=== PATIENT | female | born 1990 | race Hispanic/Latino ===

== ENCOUNTER 2017-07-12 02:15 | Inpatient (IN) | payer OTHER ==
[2017-07-12] MEDS ORDERED: AMPICILLIN 2 GM VIAL As Ordered (02:47)
[2017-07-12] MEDS: LACTATED RINGER'S 1000 ML IV (02:55)
[2017-07-12] MEDS: LR 1,000 ML IV ×3 (02:55→18:34)
[2017-07-12] MEDS ORDERED: AMPICILLIN SOD 2 GM in APPROPRIATE DILUENT 20 ML IV (02:55)
[2017-07-12 03:07] LABS: HEMATOCRIT 37.8 % (36.0-47.0); HEMOGLOBIN 13.1 g/dl (12.0-15.5); MEAN CORPUSCULAR HEMOGLOBIN 31.3 pg (27.0-33.0); MEAN CORPUSCULAR HGB CONC 34.7 g/dl (32.0-36.5); MEAN CORPUSCULAR VOLUME 90.2 fl (80.0-96.0); PLATELET COUNT, AUTOMATED 273 10^3/uL (150-450); RED BLOOD COUNT 4.19 10^6/uL (4.00-5.40); RED CELL DISTRIBUTION WIDTH 14.5 % (11.5-14.5); WHITE BLOOD COUNT 17.9 10^3/uL (4.0-10.0)
[2017-07-12] MEDS ORDERED: OXYTOCIN 30 UNITS IN 0.9% NaCl 500ML IV BAG (J2590) As Ordered (03:20)
[2017-07-12] MEDS ORDERED: DOCUSATE SODIUM 100 MG CAP PO (05:00)
[2017-07-12] MEDS: OXYTOCIN DRIP 30 UNITS in APPROPRIATE DILUENT 1 EA IV (05:00)
[2017-07-12] MEDS: LIDOCAINE 1% MDV 20ML VIAL INFIL (05:00)
[2017-07-12] MEDS ORDERED: AMPICILLIN SOD 1 GM in APPROPRIATE DILUENT 10 ML IV (07:00)
[2017-07-12] MEDS: IBUPROFEN 800 MG TAB PO ×2 (07:08→15:37)
[2017-07-12] MEDS: RHOGAM 300 MCG (1500 IU) INJ (J2790) IM (07:21)
[2017-07-12] MEDS: MEASLES,MUMPS,RUBELLA VACCINE INJ (MMR-II) (90707) SC (07:25)
[2017-07-12] MEDS: PRENATAL VITAMINS CHEWABLE TABLET PO (08:06)
[2017-07-12] MEDS: DIBUCAINE 1% OINTMENT 30GM TOP ×2 (08:06→23:01)
[2017-07-12] MEDS: ACETAMINOPHEN 500 MG TAB PO (22:53)
[2017-07-13] MEDS: LR 1,000 ML IV (02:55)
[2017-07-13] MEDS: PRENATAL VITAMINS CHEWABLE TABLET PO (07:43)
[2017-07-13] MEDS: IBUPROFEN 800 MG TAB PO ×2 (07:43→18:24)
[2017-07-14] MEDS: PRENATAL VITAMINS CHEWABLE TABLET PO (08:40)
[2017-07-14] MEDS: IBUPROFEN 800 MG TAB PO (08:41)
== END 2017-07-14 14:15 | disposition home or self-care (01) | DRG 775 ==
LOC: M LDO 02:15 → M LDI 02:54 → M OBS 06:50
PROVIDERS: Obstetrics & Gynecology
PROC: 10E0XZZ Delivery of Products of Conception, External Approach (ICD-10-PCS; principal; 2017-07-12)
PROC: 0KQM0ZZ Repair Perineum Muscle, Open Approach (ICD-10-PCS; 2017-07-12)
PROC: 10907ZC Drainage of Amniotic Fluid, Therapeutic from Products of Conception, Via Natural or Artificial Opening (ICD-10-PCS; 2017-07-12)
DX: O99.02 Anemia complicating childbirth (principal); D64.9 Anemia, unspecified; Z3A.39 39 weeks gestation of pregnancy; O99.824 Streptococcus B carrier state complicating childbirth; O69.81X0 Labor and delivery complicated by cord around neck, without compression, not applicable or unspecified; O70.1 Second degree perineal laceration during delivery; Z37.0 Single live birth